=== PATIENT | female | born 1960 | race Caucasian/White ===

== ENCOUNTER 2018-02-17 10:07 | Emergency (ER) | payer MEDICAID, OTHER ==
[~2018-02-17] VITALS: Ht 172.7 cm; Wt 81.6 kg
--- NOTE | 2018-02-17 10:20 | NUR ---
PRESENTS TO ER C/O LEFT LOWER ABDOMINAL PAIN X LAST NIGHT. ALSO C/O NAUSEA, NO VOMITING, NO DIARRHEA. A/OX 4. BREATHING EVEN AND UNLABORED. NO SOB, NAD, VITALS STABLE. SAFTEY AND COFMORT MEASURES IN PLACE. AWAITING MD ORDERS.
[2018-02-17] MEDS ORDERED: ONDANSETRON HCL/PF 4 MG/2 ML VIAL IVP ONE (10:30)
[2018-02-17] MEDS ORDERED: MORPHINE SULFATE INJ 2 MG/ML DISP.SYRIN IV ONE (10:30)
--- NOTE | 2018-02-17 10:35 | NUR ---
NEW IV STARTED ON LAC, 20G. BLOOD DRAWN AND SENT TO LAB.
[2018-02-17] MEDS ORDERED: MORPHINE SULFATE INJ 4 MG/ML DISP.SYRIN ONE (10:36)
[2018-02-17] MEDS ORDERED: ONDANSETRON HCL/PF 4 MG/2 ML VIAL ONE ×2 (10:36→14:15)
--- NOTE | 2018-02-17 10:40 | NUR ---
PATIENT MEDICATED PER MD ORDERS.
[2018-02-17 10:41] LABS: BASOPHILS # (AUTO) 0.3 /CMM (0.0-0.2); BASOPHILS % (AUTO) 2.4 % (0.0-2.0); EOSINOPHILS % (AUTO) 0.6 % (0.0-6.0); HEMATOCRIT 45 % (33-45); HEMOGLOBIN 14.9 g/dL (11.5-14.8); LYMPHOCYTES # (AUTO) 1.3 /CMM (0.8-4.8); LYMPHOCYTES % (AUTO) 12.3 % (20.0-44.0); MEAN CORPUSCULAR HGB CONC 34 g/dl (31.0-36.0); MEAN CORPUSCULAR VOLUME 91 fL (82-100); MONOCYTES # (AUTO) 0.7 /CMM (0.1-1.30); MONOCYTES % (AUTO) 6.6 % (2.0-12.0); NEUTROPHILS # (AUTO) 8.3 /CMM (1.8-8.9); NEUTROPHILS % (AUTO) 78.1 % (43.0-81.0); PLATELET COUNT (AUTO) 263 /CMM (150-450); RDW COEFFICIENT OF VARIATION 13.1 (11.5-15.0); WHITE BLOOD COUNT (AUTO) 10.7 K/uL (4.3-11.0)
[2018-02-17] MEDS ORDERED: IOHEXOL-300 100 ML VIAL IV ONE (10:48)
[2018-02-17] MEDS ORDERED: CT SWABBABLE VALVE TRANS SET 1 EA INFUS.SET MC ONE (10:49)
[2018-02-17] MEDS ORDERED: IV NS 0.9% 500 ML IV ONE (10:49)
[2018-02-17 11:14] LABS: INR 0.9 (0.87-1.13)
[2018-02-17 11:20] LABS: CREATININE 0.8 mg/dL (0.6-1.3); POTASSIUM 4.2 mmol/L (3.5-5.1)
[2018-02-17 11:26] LABS: ALBUMIN 4.1 g/dL (3.4-5.0); BILIRUBIN,TOTAL 0.6 mg/dL (0.2-1.0); TOTAL PROTEIN, SERUM 7.8 g/dL (6.4-8.2)
--- NOTE | 2018-02-17 11:32 | NUR ---
PATIENT TAKEN TO CT VIA STRETCHER.
--- NOTE | 2018-02-17 11:47 | NUR ---
PATIENT RETURNED FROM CT
[2018-02-17 12:23] LABS: APPEARANCE,URINE Clear (CLEAR); BILIRUBIN,URINE Negative (NEGATIVE); BLOOD, URINE Trace-intact Ery/uL (NEGATIVE); COLOR,URINE Yellow (YELLOW); KETONES,URINE 15 (NEGATIVE); LEUKOCYTE ESTERASE ,URINE Negative (NEGATIVE); NITRITE, URINE Negative (NEGATIVE); PH,URINE 6.5 (5.0-8.0); PROTEIN,URINE Negative (NEGATIVE); UGLUCOSE Negative (NEGATIVE); UROBILINOGEN,URINE 0.2 EU/dL (0.2)
[2018-02-17] MEDS ORDERED: IV NS 0.9% 1,000 ML BAG IV ONE (12:30)
[2018-02-17] MEDS ORDERED: PIPERACILLIN /TAZOBACTAM 3.375 G in IV D5W 50 ML IV ONE (12:30)
[2018-02-17 12:33] LABS: BACTERIA,URINE Rare /HPF (None Seen); RBC,URINE 0-2 /HPF (0-2); SQUAMOUS EPITHELIAL CELL,UR Few /HPF (None Seen); WBC,URINE 0-2 /HPF (0-3)
[2018-02-17] MEDS ORDERED: HYDROMORPHONE INJ 0.5 MG/0.5 ML SYRINGE ONE (13:15)
[2018-02-17] MEDS ORDERED: HYDROMORPHONE 1 MG/1 ML DISP.SYRIN IV ONE ×2 (13:30→14:00)
[2018-02-17] MEDS ORDERED: ONDANSETRON HCL/PF 4 MG/2 ML VIAL IV ONE (14:30)
[2018-02-17 15:06] VITALS: BP 121/77
== END 2018-02-17 15:11 | disposition home or self-care (01) ==
LOC: ER 10:15
DX: K57.92 Diverticulitis of intestine, part unspecified, without perforation or abscess without bleeding (principal); D25.9 Leiomyoma of uterus, unspecified; R10.32 Left lower quadrant pain
CPT/HCPCS: 36415; 76856-TC; 80053-TC; 81000-TC; 83605-TC; 83690-TC; 85025-TC; 85730-TC; 87040-TC; A4606; J2270; J2405; J2543; J7030; J7040; J7060; Q9967; Z7610

== ENCOUNTER 2018-12-31 09:03 | Emergency (ER) | payer MEDICAID, OTHER ==
[~2018-12-31] VITALS: Ht 172.7 cm; Wt 82.1 kg
--- NOTE | 2018-12-31 09:10 | NUR ---
BIB FRIEND W C/O LLQ ABDOMINAL PAIN THIS MORNING. TO ER BED 11, HOOKED TO MONITOR, CHANGED TO GOWN, AWAITING MD DUMAS
--- NOTE | 2018-12-31 09:44 | NUR ---
DR POE AT BEDSIDE FOR EVAL
[2018-12-31 09:59] LABS: BASOPHILS # (AUTO) 0.1 /CMM (0.0-0.2); BASOPHILS % (AUTO) 1.2 % (0.0-2.0); EOSINOPHILS % (AUTO) 2.5 % (0.0-6.0); HEMATOCRIT 45 % (33-45); HEMOGLOBIN 14.9 g/dL (11.5-14.8); LYMPHOCYTES # (AUTO) 1.7 /CMM (0.8-4.8); LYMPHOCYTES % (AUTO) 24.5 % (20.0-44.0); MEAN CORPUSCULAR HGB CONC 33 g/dl (31.0-36.0); MEAN CORPUSCULAR VOLUME 93 fL (82-100); MONOCYTES # (AUTO) 0.9 /CMM (0.1-1.30); MONOCYTES % (AUTO) 12.6 % (2.0-12.0); NEUTROPHILS # (AUTO) 4.1 /CMM (1.8-8.9); NEUTROPHILS % (AUTO) 59.2 % (43.0-81.0); PLATELET COUNT (AUTO) 249 /CMM (150-450); RED BLOOD CELL COUNT(AUTO) 4.84 MIL/uL (4.0-5.2); WHITE BLOOD COUNT (AUTO) 6.9 K/uL (4.3-11.0)
[2018-12-31] MEDS ORDERED: KETOROLAC TROMETHAMINE INJ 30 MG/ML VIAL IV ONE (10:00)
[2018-12-31] MEDS ORDERED: IV NS 0.9% 500 ML BAG IV ONE (10:00)
[2018-12-31] MEDS ORDERED: PIPERACILLIN /TAZOBACTAM 3.375 G in IV D5W 50 ML IV ONE (10:00)
[2018-12-31 10:01] LABS: APPEARANCE,URINE Clear (CLEAR); BILIRUBIN,URINE Negative (NEGATIVE); BLOOD, URINE Negative Ery/uL (NEGATIVE); COLOR,URINE Yellow (YELLOW); KETONES,URINE Negative (NEGATIVE); LEUKOCYTE ESTERASE ,URINE Negative (NEGATIVE); NITRITE, URINE Negative (NEGATIVE); PROTEIN,URINE Negative (NEGATIVE); UGLUCOSE Negative (NEGATIVE); UROBILINOGEN,URINE 0.2 EU/dL (0.2)
--- NOTE | 2018-12-31 10:01 | NUR ---
Inserted piv on LAC G20.
[2018-12-31] MEDS ORDERED: KETOROLAC TROMETHAMINE 15 MG/ML VIAL ONE (10:03)
[2018-12-31 10:06] LABS: CALCIUM, SERUM 9.3 mg/dL (8.5-10.1); CREATININE 0.7 mg/dL (0.6-1.3); POTASSIUM 3.8 mmol/L (3.5-5.1)
--- NOTE | 2018-12-31 10:12 | NUR ---
WHEELED OUT VIA RNEY FOR CT SCAN
--- NOTE | 2018-12-31 11:48 | NUR ---
IV removed. Catheter intact and site benign. Pressure and 4x4 applied to site. No bleeding noted.Patient discharged to home in stable condition. Written and verbal after care instructions given. Patient verbalizes understanding of instruction.
[2018-12-31 12:08] VITALS: BP 132/74
== END 2018-12-31 12:09 | disposition home or self-care (01) ==
LOC: ER 09:03
DX: K57.32 Diverticulitis of large intestine without perforation or abscess without bleeding (principal); D25.9 Leiomyoma of uterus, unspecified; Z60.2 Problems related to living alone
CPT/HCPCS: 36415; 74176; 80048; 81001; 85025; 96365; 96375; 99284; A4606; J1885; J2543; J7040; J7060; 81000-TC

== ENCOUNTER 2019-02-15 15:42 | Emergency (ER) | payer MEDICAID ==
[~2019-02-15] VITALS: Ht 172.7 cm; Wt 81.6 kg
[2019-02-15] MEDS ORDERED: ONDANSETRON HCL/PF 4 MG/2 ML VIAL IVP ONE (17:30)
[2019-02-15] MEDS ORDERED: IV NS 0.9% 1,000 ML BAG IV ONE (17:30)
[2019-02-15] MEDS ORDERED: MORPHINE SULFATE INJ 2 MG/ML DISP.SYRIN IV ONE ×2 (17:30→20:30)
[2019-02-15 17:35] LABS: BASOPHILS % (AUTO) 0.6 % (0.0-2.0); HEMATOCRIT 48 % (33-45); HEMOGLOBIN 15.7 g/dL (11.5-14.8); LYMPHOCYTES # (AUTO) 1.4 /CMM (0.8-4.8); LYMPHOCYTES % (AUTO) 17.3 % (20.0-44.0); MEAN CORPUSCULAR HGB CONC 33 g/dl (31.0-36.0); MEAN CORPUSCULAR VOLUME 92 fL (82-100); MONOCYTES # (AUTO) 0.4 /CMM (0.1-1.30); MONOCYTES % (AUTO) 4.4 % (2.0-12.0); NEUTROPHILS # (AUTO) 6.4 /CMM (1.8-8.9); NEUTROPHILS % (AUTO) 76.7 % (43.0-81.0); PLATELET COUNT (AUTO) 372 /CMM (150-450); RED BLOOD CELL COUNT(AUTO) 5.16 MIL/uL (4.0-5.2); WHITE BLOOD COUNT (AUTO) 8.3 K/uL (4.3-11.0)
[2019-02-15] MEDS ORDERED: ONDANSETRON HCL/PF 4 MG/2 ML VIAL ONE (17:40)
[2019-02-15] MEDS ORDERED: MORPHINE SULFATE INJ 4 MG/ML DISP.SYRIN ONE ×2 (17:41→20:16)
[2019-02-15 17:47] LABS: CALCIUM, SERUM 9.2 mg/dL (8.5-10.1); CREATININE 0.8 mg/dL (0.6-1.3); POTASSIUM 4.3 mmol/L (3.5-5.1)
[2019-02-15 17:52] LABS: ALBUMIN 3.8 g/dL (3.4-5.0); BILIRUBIN,DIRECT 0.1 mg/dL (0.0-0.2); BILIRUBIN,TOTAL 0.4 mg/dL (0.2-1.0); TOTAL PROTEIN, SERUM 7.7 g/dL (6.4-8.2)
[2019-02-15 19:02] LABS: APPEARANCE,URINE Slightly Cloudy (CLEAR); BILIRUBIN,URINE SMALL (NEGATIVE); BLOOD, URINE Small Ery/uL (NEGATIVE); COLOR,URINE Dark (YELLOW); KETONES,URINE 15 (NEGATIVE); LEUKOCYTE ESTERASE ,URINE Negative (NEGATIVE); NITRITE, URINE Negative (NEGATIVE); PH,URINE 5.5 (5.0-8.0); PROTEIN,URINE 30 mg/dl (NEGATIVE); UGLUCOSE Negative (NEGATIVE); UROBILINOGEN,URINE 0.2 EU/dL (0.2)
[2019-02-15 19:26] LABS: BACTERIA,URINE Moderate /HPF (None Seen); SQUAMOUS EPITHELIAL CELL,UR Moderate /HPF (None Seen)
[2019-02-15 19:27] LABS: CALCIUM OXALATE CRYSTALS,UR Rare /HPF (None Seen); RBC,URINE 0-2 /HPF (0-2)
[2019-02-15] MEDS ORDERED: METRONIDAZOLE 500MG/ NS 100ML 100 ML IV ONE (20:15)
[2019-02-15] MEDS ORDERED: CIPROFLOXACIN IV RTU 200 ML IV ONE (20:16)
[2019-02-15] MEDS ORDERED: CIPROFLOXACIN IV RTU 400 MG in PREMIX 1 EA IV SCH (20:30)
[2019-02-15] MEDS ORDERED: FLAGYL/NS RTU 500 MG/100 ML PIGGYBACK IV ONE (20:30)
[2019-02-15 23:25] VITALS: BP 130/77
== END 2019-02-15 23:36 | disposition home or self-care (01) ==
LOC: ER 15:42
DX: K57.32 Diverticulitis of large intestine without perforation or abscess without bleeding (principal); D25.9 Leiomyoma of uterus, unspecified
CPT/HCPCS: 36415; 74176; 80048; 80076; 81001; 83605; 83690; 85025; 87086; 96365; 96368; 96375; 96376; 99284; A4216; J0744; J2270 ×2; J2405; J3490; J7030; 81000-TC

== ENCOUNTER 2019-08-26 17:25 | Emergency (ER) | payer MEDICAID, OTHER ==
[~2019-08-26] VITALS: Ht 170.2 cm; Wt 79.4 kg
[2019-08-26] MEDS ORDERED: methylPREDNISolone SOD SUCC 125 MG/2ML VIAL ONE (19:12)
[2019-08-26] MEDS ORDERED: KETOROLAC TROMETHAMINE INJ 60 MG/2 ML VIAL IM ONE ×2 (19:12→19:30)
--- NOTE | 2019-08-26 19:17 | NUR ---
PT PRESENTED TO THE ER WITH A C/O BACK PAIN X 10 DAYS 5/10 PAIN. PT HAS HX OF BACK PAIN.
[2019-08-26] MEDS ORDERED: methylPREDNISolone SOD SUCC 125 MG/2ML VIAL IM ONE (19:30)
--- NOTE | 2019-08-26 19:30 | NUR ---
CLOTHING EXAMINER AT BEDSIDE FOR XRAY
[2019-08-26 20:56] VITALS: BP 165/87
--- NOTE | 2019-08-26 20:56 | NUR ---
Patient discharged to home in stable condition. Written and verbal after care instructions given. Patient verbalizes understanding of instruction.
== END 2019-08-26 20:57 | disposition home or self-care (01) ==
LOC: ER 17:30
DX: M54.5 Low back pain (principal); G89.29 Other chronic pain
CPT/HCPCS: 72110; 96372 ×2; 99283; J1885; J2930

== ENCOUNTER 2019-09-25 20:33 | Emergency (ER) | payer MEDICAID, OTHER ==
[~2019-09-25] VITALS: Ht 172.7 cm; Wt 83.5 kg
--- NOTE | 2019-09-25 20:44 | NUR ---
PT PRESENTED TO THE ER WITH A C/O L INDEX FINGER LAC. PT ACCIDENTALLY CUT IT ON A GLASS WHILE PUTTING THE GLASS AWAY. PT AMBULATED TO ER #4 WITH A STEADY GAIT. PT'S LAC IS OPEN TO AIR. NO ACTIVE BLEEDING NOTED.
[2019-09-25] MEDS ORDERED: IBUPROFEN 600 MG TABLET PO ONE ×2 (21:00→21:05)
--- NOTE | 2019-09-25 21:00 | NUR ---
XRaY DONE AT THE BEDSIDE.
[2019-09-25] MEDS ORDERED: LIDOCAINE HCL/MPF 1% 30 ML VIAL IJ ONE (21:35)
--- NOTE | 2019-09-25 21:37 | NUR ---
Lucas PIERRE PA-C IS AT THE BEDSIDE FOR SUTURING.
[2019-09-25] MEDS ORDERED: LIDOCAINE HCL/PF 1% 30 ML SDV IJ ONE (22:00)
--- NOTE | 2019-09-25 22:15 | NUR ---
LT INDEX FINGER WRAPPED WITH KERLEX. FINGER ALREADY IMMOBILIZED BY SPLINT.
--- NOTE | 2019-09-25 22:25 | NUR ---
Patient discharged to home in stable condition. Written and verbal after care instructions given. Patient verbalizes understanding of instruction AND RX. PT AMBULATED OUT WITH A STEADY GAIT. PT REC'D A COPY OF THE IMAGING FINDINGS. NAD NOTED. VSS.
[2019-09-25 22:38] VITALS: BP 121/85
== END 2019-09-25 22:25 | disposition home or self-care (01) ==
LOC: ER 20:34
DX: S61.211A Laceration without foreign body of left index finger without damage to nail, initial encounter (principal); W25.XXXA Contact with sharp glass, initial encounter; Y93.89 Activity, other specified; Y92.89 Other specified places as the place of occurrence of the external cause; Y99.8 Other external cause status
CPT/HCPCS: 12001; 73140; 99283; J3490

== ENCOUNTER 2019-09-27 18:15 | Emergency (ER) | payer MEDICAID ==
[~2019-09-27] VITALS: Ht 172.7 cm; Wt 84.4 kg
[2019-09-27 18:24] VITALS: BP 132/81
[2019-09-27] MEDS ORDERED: BACITRACIN ZINC OINT PACKET 1 EA PACKET TP ONE (19:00)
== END 2019-09-27 18:51 | disposition home or self-care (01) ==
LOC: ER 18:17
DX: S61.311D Laceration without foreign body of left index finger with damage to nail, subsequent encounter (principal); W25.XXXD Contact with sharp glass, subsequent encounter

== ENCOUNTER 2019-10-02 23:28 | Emergency (ER) | payer MEDICAID ==
[~2019-10-02] VITALS: Ht 172.7 cm; Wt 83.5 kg
[2019-10-02 23:49] VITALS: BP 127/82
--- NOTE | 2019-10-03 00:18 | NUR ---
Patient discharged to home in stable condition. Written and verbal after care instructions given. Patient verbalizes understanding of instruction. Pt ambulatory with a steady gait
== END 2019-10-03 00:19 | disposition home or self-care (01) ==
LOC: ER 23:30
DX: S61.211D Laceration without foreign body of left index finger without damage to nail, subsequent encounter (principal); X58.XXXD Exposure to other specified factors, subsequent encounter

== ENCOUNTER 2020-01-20 10:42 | Emergency (ER) | payer MEDICAID ==
[~2020-01-20] VITALS: Ht 175.3 cm; Wt 74.8 kg
[2020-01-20 10:57] VITALS: BP 152/99
== END 2020-01-20 12:12 | disposition home or self-care (01) ==
LOC: ER 10:45
DX: S93.691A Other sprain of right foot, initial encounter (principal); W22.8XXA Striking against or struck by other objects, initial encounter; Y93.89 Activity, other specified; Y92.89 Other specified places as the place of occurrence of the external cause; Y99.8 Other external cause status
CPT/HCPCS: 73630-TC

== ENCOUNTER 2020-02-22 19:08 | Emergency (ER) | payer MEDICAID ==
[~2020-02-22] VITALS: Ht 170.2 cm; Wt 81.6 kg
--- NOTE | 2020-02-22 19:25 | NUR ---
URINE COLLECTED AND SENT TO THE LAB.
--- NOTE | 2020-02-22 19:27 | NUR ---
PATIENT CAME TO ER BED 3 VIA UBER C/O ABDOMINAL PAIN SINCE SUNDAY. PATIENT STATES THAT THE PAIN IS POSITIONAL AND IS FLARED UP DUE TO THE POSSIBILITY OF CONSUMING CERTAIN FOOD. AAOX4. NO SOB. BREATHING EVENLY AND UNLABORED ON ROOM AIR. CONNECTED TO MONITOR.
[2020-02-22] MEDS ORDERED: MORPHINE SULFATE INJ 4 MG/ML DISP.SYRIN ONE (19:40)
[2020-02-22] MEDS ORDERED: ONDANSETRON HCL/PF 4 MG/2 ML VIAL ONE (19:40)
[2020-02-22 19:55] LABS: BASOPHILS # (AUTO) 0.1 /CMM (0.0-0.2); EOSINOPHILS % (AUTO) 0.4 % (0.0-6.0); HEMATOCRIT 47 % (33-45); HEMOGLOBIN 15.4 g/dL (11.5-14.8); LYMPHOCYTES # (AUTO) 1.4 /CMM (0.8-4.8); LYMPHOCYTES % (AUTO) 14.6 % (20.0-44.0); MEAN CORPUSCULAR HGB CONC 33 g/dl (31.0-36.0); MEAN CORPUSCULAR VOLUME 92 fL (82-100); MONOCYTES # (AUTO) 1.1 /CMM (0.1-1.30); MONOCYTES % (AUTO) 11.7 % (2.0-12.0); NEUTROPHILS # (AUTO) 6.9 /CMM (1.8-8.9); NEUTROPHILS % (AUTO) 72.3 % (43.0-81.0); PLATELET COUNT (AUTO) 261 /CMM (150-450); RED BLOOD CELL COUNT(AUTO) 5.07 MIL/uL (4.0-5.2); WHITE BLOOD COUNT (AUTO) 9.5 K/uL (4.3-11.0)
[2020-02-22] MEDS ORDERED: ONDANSETRON HCL/PF 4 MG/2 ML VIAL IVP ONE (20:00)
[2020-02-22] MEDS ORDERED: IV NS 0.9% 1,000 ML BAG IV ONE (20:00)
[2020-02-22] MEDS ORDERED: MORPHINE SULFATE INJ 2 MG/ML DISP.SYRIN IV ONE (20:00)
[2020-02-22 20:05] LABS: CALCIUM, SERUM 9.1 mg/dL (8.5-10.1); CREATININE 0.8 mg/dL (0.6-1.3); POTASSIUM 3.8 mmol/L (3.5-5.1)
[2020-02-22] MEDS ORDERED: IOHEXOL-300 100 ML VIAL IV ONE (20:05)
[2020-02-22 20:11] LABS: ALBUMIN 3.8 g/dL (3.4-5.0); BILIRUBIN,DIRECT 0.1 mg/dL (0.0-0.2); BILIRUBIN,TOTAL 0.7 mg/dL (0.2-1.0); TOTAL PROTEIN, SERUM 7.6 g/dL (6.4-8.2)
--- NOTE | 2020-02-22 20:27 | NUR ---
PATIENT TAKEN TO CT VIA GURNEY.
[2020-02-22 20:28] LABS: APPEARANCE,URINE Slightly Cloudy (CLEAR); BILIRUBIN,URINE SMALL (NEGATIVE); BLOOD, URINE Small Ery/uL (NEGATIVE); COLOR,URINE Yellow (YELLOW); KETONES,URINE Trace (NEGATIVE); LEUKOCYTE ESTERASE ,URINE Small (NEGATIVE); NITRITE, URINE Negative (NEGATIVE); PH,URINE 5.5 (5.0-8.0); PROTEIN,URINE 30 mg/dl (NEGATIVE); UGLUCOSE Negative (NEGATIVE); UROBILINOGEN,URINE 0.2 EU/dL (0.2)
[2020-02-22 20:37] LABS: BACTERIA,URINE 3+ /HPF (None Seen); SQUAMOUS EPITHELIAL CELL,UR Few /HPF (None Seen); WBC,URINE 21-50 /HPF (0-3)
[2020-02-22] MEDS ORDERED: METRONIDAZOLE 500MG/ NS 100ML 100 ML IV ONE (21:11)
[2020-02-22] MEDS ORDERED: LEVOFLOXACIN 750 MG /D5W 150ML PIGGYBACK IV ONE (21:30)
[2020-02-22] MEDS ORDERED: FLAGYL/NS RTU 500 MG/100 ML PIGGYBACK IV ONE (21:30)
[2020-02-22] MEDS ORDERED: LEVOFLOXACIN 750 MG /D5W 150ML 150 ML IV ONE (21:43)
--- NOTE | 2020-02-22 23:21 | NUR ---
IV removed. Catheter intact and site benign. Pressure and 4x4 applied to site. No bleeding noted.
--- NOTE | 2020-02-22 23:21 | NUR ---
Patient discharged to home in stable condition. Written and verbal after care instructions given. Patient verbalizes understanding of instruction.
--- NOTE | 2020-02-22 23:21 | NUR ---
Prescription provided and explained to the patient.
[2020-02-22 23:22] VITALS: BP 101/74
== END 2020-02-22 23:22 | disposition home or self-care (01) ==
LOC: ER 19:10
DX: K57.32 Diverticulitis of large intestine without perforation or abscess without bleeding (principal); N39.0 Urinary tract infection, site not specified; D25.9 Leiomyoma of uterus, unspecified; R91.1 Solitary pulmonary nodule
CPT/HCPCS: 36415; 74177; 80048; 80076; 81001; 83690; 85025; 87086; 96365; 96366; 96368; 96375; 99285; J1956; J2270; J2405; Q9967; 81000-TC

== ENCOUNTER 2020-04-14 13:55 | Emergency (ER) | payer MEDICAID ==
[~2020-04-14] VITALS: Ht 172.7 cm; Wt 81.6 kg
[2020-04-14 14:34] LABS: BASOPHILS # (AUTO) 0.1 /CMM (0.0-0.2); BASOPHILS % (AUTO) 1.1 % (0.0-2.0); EOSINOPHILS % (AUTO) 1.6 % (0.0-6.0); HEMATOCRIT 46 % (33-45); HEMOGLOBIN 15.1 g/dL (11.5-14.8); LYMPHOCYTES # (AUTO) 1.8 /CMM (0.8-4.8); LYMPHOCYTES % (AUTO) 29.8 % (20.0-44.0); MEAN CORPUSCULAR HGB CONC 33 g/dl (31.0-36.0); MEAN CORPUSCULAR VOLUME 93 fL (82-100); MONOCYTES # (AUTO) 0.5 /CMM (0.1-1.30); MONOCYTES % (AUTO) 7.4 % (2.0-12.0); NEUTROPHILS # (AUTO) 3.7 /CMM (1.8-8.9); NEUTROPHILS % (AUTO) 60.1 % (43.0-81.0); PLATELET COUNT (AUTO) 373 /CMM (150-450); RED BLOOD CELL COUNT(AUTO) 4.94 MIL/uL (4.0-5.2); WHITE BLOOD COUNT (AUTO) 6.1 K/uL (4.3-11.0)
--- NOTE | 2020-04-14 14:34 | NUR ---
patient came in to the er c/o abd pain since april 01, -N/V,-diarrhea, Hx diverticulitis, 04/23 ps. On room air, breathing evenly and unlabored. connected to the monitor and pulse ox. kept comfortable, will continue to monitor accordingly.
[2020-04-14 14:36] LABS: APPEARANCE,URINE Clear (CLEAR); BILIRUBIN,URINE Negative (NEGATIVE); BLOOD, URINE Negative Ery/uL (NEGATIVE); COLOR,URINE Yellow (YELLOW); KETONES,URINE Negative (NEGATIVE); LEUKOCYTE ESTERASE ,URINE Negative (NEGATIVE); NITRITE, URINE Negative (NEGATIVE); PROTEIN,URINE Negative (NEGATIVE); UGLUCOSE Negative (NEGATIVE); UROBILINOGEN,URINE 0.2 EU/dL (0.2)
--- NOTE | 2020-04-14 14:36 | NUR ---
urine collected and sent to lab
[2020-04-14 14:42] LABS: CALCIUM, SERUM 9.8 mg/dL (8.5-10.1); CARBON DIOXIDE 29 mmol/L (21-32); CHLORIDE 103 mmol/L (98-107); CREATININE 0.9 mg/dL (0.6-1.3); GLUCOSE 100 mg/dL (74-106); POTASSIUM 4.1 mmol/L (3.5-5.1); SODIUM SERUM 139 mmol/L (136-145); UREA NITROGEN, BLOOD 9 mg/dL (7-18)
[2020-04-14 14:48] LABS: ALANINE AMINOTRANSFERASE 29 U/L (12-78); ALBUMIN 3.8 g/dL (3.4-5.0); ALKALINE PHOSPHATASE 108 U/L (46-116); ASPARTATE AMINOTRANSFERASE 21 U/L (15-37); BILIRUBIN,DIRECT 0.1 mg/dL (0.0-0.2); BILIRUBIN,TOTAL 0.3 mg/dL (0.2-1.0); LIPASE 147 U/L (73-393); TOTAL PROTEIN, SERUM 7.7 g/dL (6.4-8.2)
[2020-04-14] MEDS ORDERED: IOHEXOL-300 100 ML VIAL IV ONE (15:06)
[2020-04-14] MEDS ORDERED: CT SWABBABLE VALVE TRANS SET 1 EA INFUS.SET MC ONE (15:06)
[2020-04-14] MEDS ORDERED: IV NS 0.9% 250 ML IV ONE (15:07)
--- NOTE | 2020-04-14 15:12 | NUR ---
wheeled patient via gurney to ct scan
--- NOTE | 2020-04-14 15:22 | NUR ---
patient came back from ct
[2020-04-14 16:40] VITALS: BP 145/71
--- NOTE | 2020-04-14 16:41 | NUR ---
Patient discharged to home in stable condition. Written and verbal after care instructions given. Patient verbalizes understanding of instruction.IV removed. Catheter intact and site benign. Pressure and 4x4 applied to site. No bleeding noted.
== END 2020-04-14 16:40 | disposition home or self-care (01) ==
LOC: ER 13:55
DX: R10.84 Generalized abdominal pain (principal); D25.9 Leiomyoma of uterus, unspecified; R91.1 Solitary pulmonary nodule
CPT/HCPCS: 36415; 74177; 80048; 80076; 81001; 83690; 84484; 85025; 99285; J7050; Q9967; 81000-TC

== ENCOUNTER 2020-07-28 15:27 | Inpatient (IN) | payer MEDICAID ==
[~2020-07-28] VITALS: Ht 170.2 cm; Wt 81.6 kg
--- NOTE | 2020-07-28 15:47 | NUR ---
BIB FAMILY MEMBER FROM HOME WITH C/O DIZZINESS, FELLING OFF BALANCE X 1 WEEK, WORST TODAY. PT ABLE TO MOVE ALL AXTREMITIES. NO FACIAL DROOPING. NO C/O PAIN OR DISCOMFORT. NO CHEST PAIN. WILL CONTINUE TO MONITOR
--- NOTE | 2020-07-28 16:05 | NUR ---
OFFERED PT TO COLLECT URINE. PT UNABLE AT THIS TIME
--- NOTE | 2020-07-28 16:18 | NUR ---
IV LINE ESTABLISHED BLOOD DRAWN SENT TO LAB
[2020-07-28 16:39] LABS: BASOPHILS # (AUTO) 0.1 /CMM (0.0-0.2); BASOPHILS % (AUTO) 1.1 % (0.0-2.0); EOSINOPHILS % (AUTO) 0.8 % (0.0-6.0); HEMATOCRIT 48 % (33-45); HEMOGLOBIN 15.4 g/dL (11.5-14.8); LYMPHOCYTES # (AUTO) 1.5 /CMM (0.8-4.8); LYMPHOCYTES % (AUTO) 26.3 % (20.0-44.0); MEAN CORPUSCULAR HGB CONC 32 g/dl (31.0-36.0); MEAN CORPUSCULAR VOLUME 94 fL (82-100); MONOCYTES # (AUTO) 0.5 /CMM (0.1-1.30); NEUTROPHILS # (AUTO) 3.7 /CMM (1.8-8.9); NEUTROPHILS % (AUTO) 62.8 % (43.0-81.0); PLATELET COUNT (AUTO) 228 /CMM (150-450); RED BLOOD CELL COUNT(AUTO) 5.08 MIL/uL (4.0-5.2); WHITE BLOOD COUNT (AUTO) 5.9 K/uL (4.3-11.0)
--- NOTE | 2020-07-28 17:07 | NUR ---
PT IN BED ALERT AND ORIENTED X4. NO CHANGES IN LOC. ABLE TO FOLLOW COMMANDS. NO C/O HEADACHE AT THIS TIME. WILL CONTINUE TO MONITOR
[2020-07-28] MEDS ORDERED: IBUP-1955 PO (17:11)
--- NOTE | 2020-07-28 17:13 | NUR ---
DR KHANNA AT BEDSIDE, INFORMED PT WILL ADMIT TO ICU
[2020-07-28 17:17] LABS: CALCIUM, SERUM 9.5 mg/dL (8.5-10.1); CARBON DIOXIDE 24 mmol/L (21-32); CHLORIDE 105 mmol/L (98-107); CREATININE 0.8 mg/dL (0.6-1.3); GLUCOSE 96 mg/dL (74-106); POTASSIUM 3.6 mmol/L (3.5-5.1); SODIUM SERUM 142 mmol/L (136-145); UREA NITROGEN, BLOOD 13 mg/dL (7-18)
--- NOTE | 2020-07-28 17:17 | NUR ---
COVID SWAB TEST DONE AND SENT TO LAB
--- NOTE | 2020-07-28 17:51 | NUR ---
pt in bed alert and oriented x3. able to follow commands. no LAMBERT, no pain. no changes in loc. all needs attended
[2020-07-28] MEDS ORDERED: MAGNESIUM HYDROXIDE 30 ML UDC PO PRN (18:00)
[2020-07-28] MEDS ORDERED: ZOLPIDEM TARTRATE 5 MG TABLET PO PRN (18:00)
[2020-07-28] MEDS ORDERED: HYDROCODONE/APAP 5/325MG TABLET PO PRN (18:00)
[2020-07-28] MEDS ORDERED: MAG HYDROX/AL HYDROX/SIMETH 30 ML UDC PO PRN (18:00)
[2020-07-28] MEDS ORDERED: hydrALAZINE HCL 25 MG TABLET PO PRN (18:00)
[2020-07-28] MEDS ORDERED: Z GUARD REMEDY 2 OZ OINT TP PRN (18:00)
[2020-07-28] MEDS ORDERED: ACETAMINOPHEN 325 MG TABLET PO PRN (18:00)
[2020-07-28] MEDS ORDERED: ONDANSETRON HCL/PF 4 MG/2 ML VIAL IVP PRN (18:00)
--- NOTE | 2020-07-28 18:10 | NUR ---
PT IN BED ALERT AND ORIENTED. NO CHANGES IN LOC. NO SEIZURE. NO CONFUSION. NO C/O HEADACHE. ALL NEEDS ATTENDED
--- NOTE | 2020-07-28 18:18 | NUR ---
LAB CALLED PT COVID-19 NEG. (-)
--- NOTE | 2020-07-28 18:30 | NUR ---
F/U ICU BED AVAILABILITY W/ HOUSE SUP
--- NOTE | 2020-07-28 18:31 | NUR ---
ICU BED 256 ASSIGNED
--- NOTE | 2020-07-28 18:45 | NUR ---
RECEIVED REPORT FROM ER FOR ADMIT
--- NOTE | 2020-07-28 18:45 | NUR ---
SPOKE TO KATHIE RIBEIRO AND GAVE REPORT FOR SHASHI.
--- NOTE | 2020-07-28 19:20 | NUR ---
RN CLOSING NOTE: PATIENT IN ROOM. NO SIGNS OF ACUTE DISTRESS NOTED AT THIS TIME. SATING WELL ON ROOM AIR. SATING WELL. SR IN THE 70S. SAFETY MEASURES IMPLEMENTED, BED IN LOWEST POSITION, LOCKED, SIDE RAILS UP, CALL LIGHT WITHIN REACH. ENDORSED TO GEMA ORO FOR CONTINUITY OF CARE.
--- NOTE | 2020-07-28 19:30 | NUR ---
CATALYTIC CONVERTER OPERATOR HELPER NOTES RECEIVED PATIENT IN BED AOX4. BREATHING REGULAR AND NON LABORED, NO SOB NOTED. NOT IN ANY RESPIRATORY DISTRESS. ON RA SATING 98%. IV SITES ON LT HAND #18G AND RT HAND #20G INTACT PATENT FLUSHED WELL. DENIES ANY PAIN OR DISCOMFORT AT THIS TIME. ADMISSION CARE ND ASSESSMENT RENDERED. SKIN INTACT. PATIENT ORIENTED TO ROOM AND EQUIPMENT VERBALIZED UNDERSTANDING. SAFETY MEASURERS IN PLACE, CALL LIGHT WITHIN REACH. WILL CONT TO MONITOR FOR SHASHI.
[2020-07-28 20:00] VITALS: BP 125/85
--- NOTE | 2020-07-28 20:00 | NUR ---
RN NOTES PATIENT LEFT FOR MRI IN STABLE CONDITION WITH ACLS PROTOCOL. ACCOMPANY WITH ONE RN AND TECH.
--- NOTE | 2020-07-28 20:56 | NUR ---
RN NOTES PATIENT CAME BACK FROM MRI IN STABLE CONDITION. SAFETY MAINTAINED. WILL CONT TO MONITOR.
[2020-07-28 21:00] VITALS: BP 145/78
[2020-07-28] MEDS: DEXAMETHASONE SOD PHOSPHATE 4 MG/ML VIAL IV SCH (21:19)
[2020-07-28 22:00] VITALS: BP 129/84
[2020-07-28 23:00] VITALS: BP 145/85
[2020-07-29] VITALS (24 sets, daily range): BP systolic 109–156; BP diastolic 66–121
[2020-07-29 04:15] LABS: BASOPHILS # (AUTO) 0.1 /CMM (0.0-0.2); HEMATOCRIT 48 % (33-45); HEMOGLOBIN 15.4 g/dL (11.5-14.8); LYMPHOCYTES # (AUTO) 0.8 /CMM (0.8-4.8); LYMPHOCYTES % (AUTO) 15.5 % (20.0-44.0); MEAN CORPUSCULAR HGB CONC 32 g/dl (31.0-36.0); MEAN CORPUSCULAR VOLUME 95 fL (82-100); MONOCYTES # (AUTO) 0.1 /CMM (0.1-1.30); MONOCYTES % (AUTO) 1.1 % (2.0-12.0); NEUTROPHILS # (AUTO) 4.3 /CMM (1.8-8.9); NEUTROPHILS % (AUTO) 82.4 % (43.0-81.0); PLATELET COUNT (AUTO) 223 /CMM (150-450); RED BLOOD CELL COUNT(AUTO) 5.05 MIL/uL (4.0-5.2); WHITE BLOOD COUNT (AUTO) 5.3 K/uL (4.3-11.0)
[2020-07-29 04:24] LABS: CALCIUM, SERUM 9.3 mg/dL (8.5-10.1); CREATININE 0.7 mg/dL (0.6-1.3); MAGNESIUM 2.3 mg/dL (1.8-2.4); PHOSPHORUS 3.6 mg/dL (2.5-4.9); POTASSIUM 4.2 mmol/L (3.5-5.1)
[2020-07-29 04:36] LABS: THYROID STIMULATING HORMONE 0.391 uIU/mL (0.358-3.74)
--- NOTE | 2020-07-29 07:32 | NUR ---
FORGE HAND NOTES NO CHANGES NOTED DURING SHIFT. VITAL SIGNS REMAINED WNL. BREATHING REGULAR NO S/S OF ACUTE DISTRESS NOTED. ROUTINE MEDICATIONS GIVEN TOLERATED WELL. PATIENT DENIES ANY DIZZINESS OR HEADACHE. IV'S INTACT NO S/S OF BLEEDING NO SWELLING NOTED FLUSHES WELL. KEPT CLEAN DRY AND COMFORTABLE. ALL NEEDS ARE ATTENDED. ENDORSE TO AM NURSE FOR SHASHI.
[2020-07-29] MEDS: DEXAMETHASONE SOD PHOSPHATE 4 MG/ML VIAL IV SCH ×2 (10:27→18:33)
[2020-07-29] MEDS ORDERED: GADOTERATE MEGLUMINE 10 MMOL/20 ML VIAL IV ONE (15:00)
--- NOTE | 2020-07-29 19:30 | NUR ---
END OF SHIFT NOTE: NO CHANGES IN PT'S NEURO STATUS THIS SHIFT. PT ONLY DISPLAYS SLIGHT WEAKNESS IN RIGHT ARM AND RIGHT LEG, VERY SLIGHT APHASIA NOTED. EXTENSIVE STROKE TEACHING DONE WITH PATIENT, PATIENTS MOTHER GRETEL OVER THE PHONE AND PT'S BROTHER DONATO OVER THE PHONE. PT USED TO COMMODE WITH MINIMAL ASSISTANCE, NO DIZZINESS NOTED. PT CHECKED ON HOURLY AND PRN BY NURSING STAFF.
[2020-07-30] VITALS (26 sets, daily range): BP systolic 104–159; BP diastolic 61–106
[2020-07-30 04:04] LABS: BASOPHILS % (AUTO) 0.2 % (0.0-2.0); HEMATOCRIT 47 % (33-45); HEMOGLOBIN 15.3 g/dL (11.5-14.8); LYMPHOCYTES # (AUTO) 0.9 /CMM (0.8-4.8); LYMPHOCYTES % (AUTO) 7.3 % (20.0-44.0); MEAN CORPUSCULAR HGB CONC 33 g/dl (31.0-36.0); MEAN CORPUSCULAR VOLUME 94 fL (82-100); MONOCYTES # (AUTO) 0.5 /CMM (0.1-1.30); MONOCYTES % (AUTO) 4.1 % (2.0-12.0); NEUTROPHILS % (AUTO) 88.4 % (43.0-81.0); PLATELET COUNT (AUTO) 234 /CMM (150-450); WHITE BLOOD COUNT (AUTO) 12.5 K/uL (4.3-11.0)
[2020-07-30 04:14] LABS: CALCIUM, SERUM 9.2 mg/dL (8.5-10.1); CREATININE 0.7 mg/dL (0.6-1.3); MAGNESIUM 2.2 mg/dL (1.8-2.4); PHOSPHORUS 3.3 mg/dL (2.5-4.9); POTASSIUM 4.4 mmol/L (3.5-5.1)
--- NOTE | 2020-07-30 08:10 | NUR ---
BLOCK SETTER GYPSUM: pt is A/Ox3, no c/o, no pain, no neuro status c/o, no motoric/sensitivity c/o now, SR, SBP over 100/below 140, O2sat. WNL, no headache, no critical labs, oriented pt for POC, meds, fall prevention measures
[2020-07-30] MEDS: DEXAMETHASONE SOD PHOSPHATE 4 MG/ML VIAL IV SCH ×2 (08:49→16:37)
[2020-07-30] MEDS ORDERED: IOHEXOL-350 100 ML VIAL IV ONE (13:01)
[2020-07-30] MEDS ORDERED: CT SWABBABLE VALVE TRANS SET 1 EA INFUS.SET MC ONE (13:01)
[2020-07-30] MEDS ORDERED: IV NS 0.9% 250 ML IV ONE (13:01)
--- NOTE | 2020-07-30 15:06 | NUR ---
Contribution Solicitor met with patient today to complete a psychosocial assessment. Reason for assessment is stroke. Patient is alert and oriented x4. Patient appeared tired but calm. Patient was receptive to speaking with this SW. Patient confirmed information on face sheet including date of , social security number, address, and contact information. Patient reports that she was homeless about 3 years ago but has been living with her mom since then. 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 Patient expressed that she believe that her current health condition was brought on by too much stress. Patient reports that she is thankful that this bleed did not cause more permanent consequence. Patient began to cry and this SW affirmed her feelings. Patient is thankful to be alive and per patient, she stated that she will take all the guidance from her medical team to live a better and healthier life. SW conducted PHQ9 on the patient. Patient scored a 4 and was given stroke empowerment information. SW to remain available for all needs regarding this patient.
--- NOTE | 2020-07-30 16:31 | NUR ---
pt is resting in the bed, a/o x4, no neurological deficit noted, SR, on RA sat well, tolerates diet, uses bedside commode, good urine output, head CTA done, v/s stable, no pain, pt turns and repositions by herself.
--- NOTE | 2020-07-30 19:30 | NUR ---
SIZING SPRAYER RCD PT W/DX ICH; PT IS A/O x4. NSR ON MONITOR. ON ROOM AIR. PT INDEPENDENT W/ADLs. BSC AT BEDSIDE. SKIN INTACT. MULTIPLE HL PATENT.
--- NOTE | 2020-07-30 21:25 | NUR ---
NONFARM ANIMAL CARETAKER PT CALLED AND ASKED TO TURN MONITOR SO SHE MAY SEE IT.
[2020-07-31] VITALS (13 sets, daily range): BP systolic 105–142; BP diastolic 42–89
[2020-07-31 04:22] LABS: BASOPHILS % (AUTO) 0.3 % (0.0-2.0); HEMATOCRIT 47 % (33-45); HEMOGLOBIN 15.2 g/dL (11.5-14.8); LYMPHOCYTES # (AUTO) 1.2 /CMM (0.8-4.8); LYMPHOCYTES % (AUTO) 10.4 % (20.0-44.0); MEAN CORPUSCULAR HGB CONC 33 g/dl (31.0-36.0); MEAN CORPUSCULAR VOLUME 95 fL (82-100); MONOCYTES # (AUTO) 0.7 /CMM (0.1-1.30); MONOCYTES % (AUTO) 6.3 % (2.0-12.0); NEUTROPHILS # (AUTO) 9.6 /CMM (1.8-8.9); PLATELET COUNT (AUTO) 223 /CMM (150-450); RED BLOOD CELL COUNT(AUTO) 4.93 MIL/uL (4.0-5.2); WHITE BLOOD COUNT (AUTO) 11.6 K/uL (4.3-11.0)
[2020-07-31 04:38] LABS: CALCIUM, SERUM 9.2 mg/dL (8.5-10.1); CREATININE 0.7 mg/dL (0.6-1.3); MAGNESIUM 2.1 mg/dL (1.8-2.4); PHOSPHORUS 4.2 mg/dL (2.5-4.9); POTASSIUM 4.6 mmol/L (3.5-5.1)
--- NOTE | 2020-07-31 06:08 | NUR ---
AUTOMATIC WINDER OPERATOR PT DECLINED LINEN CHANGE OR BED BATH. PT REMAINS WITH CLOTHES ON FROM HOME. PT ONLY CONCERN IS THE FOOD SHE IS RECEIVING. PT HAS DIVERTICULITIS AND NEEDS HER FOOD WITHOUT SEEDS; WOULD LIKE TO TALK TO SEO PROFESSIONAL REGARDING PROPER FOOD MENU. CONTINUE TO MONITOR.
--- NOTE | 2020-07-31 08:16 | NUR ---
received pt from learning administrator, a/o x4, no neurological deficit noted, SR, sat well on RA, tolerates diet, uses bedside commode, v/s stable, no pain.
[2020-07-31] MEDS: DEXAMETHASONE SOD PHOSPHATE 4 MG/ML VIAL IV SCH ×2 (08:30→16:29)
--- NOTE | 2020-07-31 10:35 | NUR ---
pt transferred to [facility], ACLS followed, a/o x4, SR, RA, v/s stable, no pain, report given to Chun.
--- NOTE | 2020-07-31 10:40 | NUR ---
SALON LEADER NOTE: Patient was brought in by GEMA So for transfer from ICU via wheelchair. Patient in stable condition. Awake, alert and oriented x4. Responds appropriately, no neurological deficits noted. On room air and tolerating well. No SOB and not in respiratory distress. No pain noted nor reported. Call light in reach. Bed locked low and at semi-mabrosio's position. Side rails up x3. Safety ensured and observed. Will continue to monitor.
--- NOTE | 2020-07-31 18:40 | NUR ---
RN CLOSING/DISCHARGE NOTE: Patient was seen by Dr. Ribera and educated about dischrage instructions, patient verbalized understanding. Patient in stable condition. Awake, alert and oriented x4. Responds appropriately, no neurological deficits noted. On room air and tolerating well. No SOB and not in respiratory distress. No pain noted nor reported. Discharge and Belongings form signed. Patient verbalized understanding of discharge instructions by nurse. Will arrange her ride home. Awaiting imaging copies before she goes home. Will follow up and endorse to oncoming shift. Call light in reach. Bed locked low and at semi-ambrosio's position. Side rails up x3. Safety ensured and observed. All due medications given. Treatment given as ordered.
--- NOTE | 2020-07-31 19:30 | NUR ---
MS OPENING NOTE RECEIVED PT IN BED, A/O X4. BREATHING EVEN AND UNLABORED ON SATURATION 97. DENIES ANY PAIN OR DISCOMFORT. IV SITES PATENT AND INTACT. CALL LIGHT WITHIN REACH. BED IN LOWEST POSITION. ALL NEEDS RENDERED. WILL CONTINUE TO MONITOR.
--- NOTE | 2020-07-31 19:50 | NUR ---
MS RN NOTE DISCHARGE PT IN STABLE CONDITION. A/O X4. BREATHING EVEN AND UNLABORED. DENIES ANY PAIN OR DISCOMFORT. REMOVED ALL IV LINES. PT TOLERATED WELL. ARM BAND REMOVED. ALL BELONGINGS CHECKED AND SIGNED.DISCHARGED INSTRUCTIONS GIVEN AND UNDERSTOOD. LEFT UNIT VIA W/C ASSISTED BY ACTING TEACHER. PT ASSISTED TO THE LOBBY. PT PICKED UP BY BROTHER.
== END 2020-07-31 19:50 | disposition home health service (06) | DRG 44 ==
LOC: ER 15:34 → ICU 18:44 → TELE1 07-31 10:19 → MEDSG1 07-31 16:06
PROVIDERS: ADMIT Student in an Organized Health Care Education/Training Program; ATTEND Student in an Organized Health Care Education/Training Program
DX: I61.0 Nontraumatic intracerebral hemorrhage in hemisphere, subcortical (principal); G93.6 Cerebral edema
CPT/HCPCS: 36415; 70450-TC; 70496-TC; 70553-TC; 71045-TC; 80048-TC; 80061-TC; 82962-TC; 83735-TC; 84100-TC; 84443-TC; 84484-TC; 85025-TC; 87081-TC; 97116-TC; 97530-TC; A6403; A9575; C9803; G0378; J1100; J7050; Q9967

== ENCOUNTER 2020-08-01 18:50 | Emergency (ER) | payer MEDICAID ==
[~2020-08-01] VITALS: Ht 170.2 cm; Wt 79.4 kg
[~2020-08-01 18:50] MED LIST: IBUP-1955 PO
--- NOTE | 2020-08-01 19:00 | NUR ---
[id number], from home, c/o weakness x 1 day, recently discharged from [facility] for brain bleed. to ER bed 9, hooked to hospital monitor, BP cuff and POX, changed to hosp gown, warm blanket provided, patient AAO x 4, breathing even and unlabored, NAD noted. awaiting MD patel.
--- NOTE | 2020-08-01 19:14 | NUR ---
MARY PIERRE AT BEDSIDE FOR EVAL
[2020-08-01] MEDS ORDERED: IV NS 0.9% 1,000 ML BAG IV ONE (19:30)
--- NOTE | 2020-08-01 19:51 | NUR ---
taken to ct via joel
--- NOTE | 2020-08-01 19:56 | NUR ---
RETURNED FROM CT.
[2020-08-01 20:01] LABS: BASOPHILS # (AUTO) 0.1 /CMM (0.0-0.2); EOSINOPHILS % (AUTO) 0.7 % (0.0-6.0); HEMATOCRIT 48 % (33-45); HEMOGLOBIN 15.8 g/dL (11.5-14.8); LYMPHOCYTES # (AUTO) 2.8 /CMM (0.8-4.8); LYMPHOCYTES % (AUTO) 26.3 % (20.0-44.0); MEAN CORPUSCULAR HGB CONC 33 g/dl (31.0-36.0); MEAN CORPUSCULAR VOLUME 94 fL (82-100); MONOCYTES # (AUTO) 1.2 /CMM (0.1-1.30); MONOCYTES % (AUTO) 11.1 % (2.0-12.0); NEUTROPHILS # (AUTO) 6.6 /CMM (1.8-8.9); NEUTROPHILS % (AUTO) 60.9 % (43.0-81.0); PLATELET COUNT (AUTO) 230 /CMM (150-450); RED BLOOD CELL COUNT(AUTO) 5.07 MIL/uL (4.0-5.2); WHITE BLOOD COUNT (AUTO) 10.8 K/uL (4.3-11.0)
[2020-08-01 21:22] LABS: CALCIUM, SERUM 8.9 mg/dL (8.5-10.1); CREATININE 0.9 mg/dL (0.6-1.3); POTASSIUM 3.4 mmol/L (3.5-5.1)
[2020-08-01 22:30] VITALS: BP 127/83
== END 2020-08-01 22:30 | disposition home or self-care (01) ==
LOC: ER 18:56
DX: E86.0 Dehydration (principal); Z79.899 Other long term (current) drug therapy
CPT/HCPCS: 36415; 70450; 80048; 85025; 93005; 96360; 99285; J7030